=== PATIENT | male | born 1965 | race Caucasian/White ===

== ENCOUNTER → 2018-02-28 | Outpatient (CLI) | payer OTHER ==
--- NOTE | 2018-02-28 16:01 | RAD ---
PA and lateral chest. HISTORY: Cough PA and lateral views were taken of the chest. Lungs are clear. Heart is normal in size without heart failure. There is no pleural effusion. IMPRESSION: 1. No acute chest disease. Electronically signed by: Zudro Good MD (02/28/2018 3:58 PM) [id number]
== END | disposition home or self-care (01) ==
LOC: RAD 12:08
PROVIDERS: ATTEND Physician Assistant Medical
DX: R05 Cough (principal)
CPT/HCPCS: 71046

== ENCOUNTER → 2019-03-08 | Outpatient (CLI) | payer OTHER ==
--- NOTE | 2019-03-08 16:33 | RAD ---
EXAM: Chest, 2 views. HISTORY: Cough. COMPARISON: 02/28/2018 FINDINGS: 2 views of chest are obtained. There is no infiltrate, pleural effusion or pneumothorax. The heart is normal in size. IMPRESSION: No acute pulmonary finding. Electronically signed by: Radha Fuentes MD (03/08/2019 4:30 PM) [place] [id number]
== END | disposition home or self-care (01) ==
LOC: DXRAD 15:48
PROVIDERS: ATTEND Physician Assistant Medical
DX: R05 Cough (principal)
CPT/HCPCS: 71046